=== PATIENT | male | born 1990 | race Caucasian/White ===

== ENCOUNTER 2019-12-14 10:52 | Emergency (ER) | payer OTHER ==
[~2019-12-14] VITALS: Ht 185.4 cm; Wt 81.7 kg
[~2019-12-14 10:52] MED LIST: CEPH500 PO
== END 2019-12-14 12:15 | disposition home or self-care (01) ==
LOC: ER 10:52
DX: T18.5XXA Foreign body in anus and rectum, initial encounter (principal)
CPT/HCPCS: 74018; 99283-25